=== PATIENT | female | born 1965 | race Caucasian/White ===

== ENCOUNTER 2020-10-04 11:55 | Outpatient (REF) | payer OTHER, SELFPAY | END 2020-10-04 11:56 | disposition home or self-care (01) | LOC: HO.LNP 11:55 | PROVIDERS: Visit Provider Nurse Practitioner Family | DX: Z20.822 Contact with and (suspected) exposure to COVID-19 (principal); J02.9 Acute pharyngitis, unspecified; K04.7 Periapical abscess without sinus | CPT/HCPCS: U0003; U0005 ==

== ENCOUNTER 2023-03-12 11:05 | Outpatient (AMB) | payer OTHER, SELFPAY ==
--- NOTE | 2023-03-12 13:13 | AM.OFFWIN_ITS ---
Intake Vital Signs 03/12/23 13:15 Height 5 ft 8 in Weight 160 lb BMI 24.3 BP 140/80 H Blood Pressure Location Rt brachial Position Sitting Pulse 74 Pulse Source Pulse Oximeter Temp 97.4 F Temp Source Temporal Artery Scan Pulse Oximetry (%) 100 Oxygen Delivery Method Room Air Intake Visit Reasons: EST/right side ear clogged Intake Note: pt is here for c.o cough due to congestion, ear clogged Patient Tobacco Use Status: Current everyday Tobacco user [facility] Allergy (Mild, Verified 03/12/23 13:23) welt Medication List - Last Reconciled 03/12/23 by Kev Valenzuela MD atorvastatin 80 mg PO DAILY blood sugar diagnostic As directed cetirizine 10 mg PO DAILY ferrous sulfate (Daniel-Time) 325 mg PO DAILY insulin glargine 42 units subcut DAILY liraglutide (Victoza 3-Keaton) 1.8 mg subcut DAILY metformin 1,000 mg PO BID pen needle, diabetic As directed tacrolimus 0.1% topical BID Do you need a note to return to daycare/school/sports/work: Yes HPI EST/right side ear clogged HPI Details Patient presents for a sick visit. Reporting symptoms of sinus congestion, sore throat and difficulty swallowing. Low-grade fever. No family member is sick. No recent travel. Patient reports symptoms of malaise and fatigue. PFSH Social History Patient Tobacco Use Status: Current everyday Tobacco user Physical Exam Vital Signs: Last Vital Signs Temp 97.4 F 03/12/23 13:15 Pulse 74 03/12/23 13:15 BP 140/80 H 03/12/23 13:15 Pulse Ox 100 03/12/23 13:15 Oxygen Delivery Method Room Air 03/12/23 13:15 BMI result Body Mass Index 24.3 Const General: cooperative and healthy appearing Nutritional Appearance: well nourished Orientation/consciousness: patient oriented x3 Limitations: no limitations HEENT Head: Yes normal to inspection Eyes General: appearance normal, both eyes and all related structures Neck Neck: Yes normal visual inspection Chest Chest palpation & inspection: normal palpation of entire chest wall Resp Effort & Inspection: normal respiratory effort Neuro General: patient oriented x3 Assessment & Plan Assessment & Plan (1) Upper respiratory tract infection: Code(s): J06.9 - Acute upper respiratory infection, unspecified Qualifiers: URI type: unspecified viral URI Qualified Code(s): J06.9 - Acute upper respiratory infection, unspecified Plan: Antibiotics ordered. Increase fluid intake. Tylenol for aches and pains. If symptoms worsen, follow-up here for a recheck. Coding Level of Care Code Est Pt Level 3 (10327) Diagnoses Viral upper respiratory tract infection J06.9 URI type: unspecified viral URI
[2023-03-12 13:15] VITALS: BP 140/80; PULSE 74; TEMP 36.3; O2SAT 100; BMI 24.3
== END 2023-03-12 13:52 | disposition home or self-care (01) ==
PROVIDERS: Visit Provider Internal Medicine
DX: J06.9 Acute upper respiratory infection, unspecified (principal)
CPT/HCPCS: 99213

== ENCOUNTER 2023-07-29 09:59 | Outpatient (AMB) | payer OTHER, SELFPAY ==
[2023-07-29 12:05] VITALS: BP 160/80; PULSE 92; TEMP 36.5; O2SAT 99; BMI 21.9
--- NOTE | 2023-07-29 12:05 | AM.OFFWIN_ITS ---
Intake Vital Signs 07/29/23 12:05 Height 5 ft 8 in Weight 144 lb BMI 21.9 BP 160/80 H Blood Pressure Location Rt brachial Position Sitting Pulse 92 Pulse Source Pulse Oximeter Temp 97.7 F Temp Source Temporal Artery Scan Pulse Oximetry (%) 99 Oxygen Delivery Method Room Air Intake Visit Reasons: EP sharp pain mid abdomen [phone] Intake Note: pt is here today for sharp pain mid abdomen started saturday Patient Tobacco Use Status: Current everyday Tobacco user Allergies dulaglutide [From [facility]] Allergy (Mild, Verified 07/29/23 12:06) welt Do you need a note to return to daycare/school/sports/work: Yes HPI EP sharp pain mid abdomen [phone] HPI Details 57-year-old female presents to the [facility] for a sick visit. Patient is complaining of abdominal discomfort for the past few days. Pain under both her ribcage is. No specific relieving or exacerbating factors. Patient is had few bowel movements. No history of nausea or vomiting. PFSH Social History Patient Tobacco Use Status: Current everyday Tobacco user Physical Exam Vital Signs: Last Vital Signs Temp 97.7 F 07/29/23 12:05 Pulse 92 07/29/23 12:05 BP 160/80 H 07/29/23 12:05 Pulse Ox 99 07/29/23 12:05 Oxygen Delivery Method Room Air 07/29/23 12:05 BMI result Body Mass Index 21.9 Const General: cooperative and healthy appearing Nutritional Appearance: well nourished Orientation/consciousness: patient oriented x3 Limitations: no limitations HEENT Head: Yes normal to inspection Eyes General: appearance normal, both eyes and all related structures Neck Neck: Yes normal visual inspection Chest Chest palpation & inspection: normal palpation of entire chest wall Resp Effort & Inspection: normal respiratory effort Neuro General: patient oriented x3 Assessment & Plan Assessment & Plan (1) Abdominal pain: Code(s): R10.9 - Unspecified abdominal pain Plan: X-ray images personally reviewed by me. Symptoms could be due to constipation pulled patient was advised to drink milk of magnesia and a suppository. If symptoms not improved to follow-up here. Orders: Orders XR abdomen min 2V Today R10.9 - Unspecified abdominal pain Coding Level of Care Code Est Pt Level 4 (88508) Diagnoses Abdominal pain R10.9
== END 2023-07-29 13:39 | disposition home or self-care (01) ==
PROVIDERS: Visit Provider Internal Medicine
DX: R10.9 Unspecified abdominal pain (principal)
CPT/HCPCS: 99214

== ENCOUNTER 2023-07-29 12:25 | Outpatient (REF) | payer OTHER, SELFPAY ==
--- NOTE | ~2023-07-29 | XR_ITS ---
EXAMINATION: XR ABDOMEN COMPLETE CLINICAL INDICATION: Abdominal pain COMPARISON: None available. TECHNIQUE: 3 views of the abdomen. FINDINGS: No dilated loops of bowel to suggest obstruction. Mild fecal loading of the ascending colon. Degenerative changes of the thoracolumbar lumbosacral spine with slight levocurvature of the upper lumbar spine. Degenerative changes of the bilateral femoral acetabular joint. Slight elevation the right hemidiaphragm. Soft tissues are unremarkable. XR/XR abdomen min 2V IMPRESSION: 1. No dilated loops of bowel to suggest obstruction. 2. Mild fecal loading of the ascending colon.
== END 2023-07-29 12:26 | disposition home or self-care (01) ==
LOC: HO.HMGCX 12:25
PROVIDERS: Visit Provider Internal Medicine
DX: R10.9 Unspecified abdominal pain (principal)
CPT/HCPCS: 74019

== ENCOUNTER 2023-07-30 13:56 | Outpatient (REF) | payer OTHER, SELFPAY ==
[2023-07-30 16:17] LABS: Hematocrit 39.4 % (37.0-47.0); Hemoglobin 13.2 g/dl (12.0-16.0); Mean Corpuscular HGB Conc 33.5 g/dl (31.0-35.0); Mean Corpuscular Hemoglobin 29.4 pg (27.0-33.0); Mean Corpuscular Volume 87.8 fL (80.0-98.0); Mean Platelet Volume 10.2 fL (9.4-12.3); Platelet Count 413 X10*3/uL (160-400); Red Blood Count 4.49 X10*6/uL (4.20-5.50); Red Cell Distribution Width 11.9 % (11.0-16.0); White Blood Count 8.3 X10*3/uL (4.8-10.8)
[2023-07-30 16:24] LABS: Estimated Average Glucose 192 mg/dL; Hemoglobin A1c % 8.3 % (<6.0)
[2023-07-30 16:45] LABS: Appearance Urine Turbid; Color Urine Yellow; Glucose Urine UA 500 mg/dL (Negative); Leukocyte Esterase Urine Moderate (2+) (Negative); Nitrite Urine Positive (Negative); Specific Gravity - Urine 1.025 (1.005-1.025); UMIC TRIGGER UA YES; Urine Blood Negative (Negative); Urine Ketones Negative (Negative); Urine Protein Trace mg/dL (Neg-Trace)
[2023-07-30 16:46] LABS: Alanine Aminotransferase 20 U/L (0-31); Albumin Level 3.6 g/dL (3.5-5.0); Alkaline Phosphatase 179 U/L (39-117); Anion Gap 14 (12-20); Aspartate Amino Transferase 11 U/L (5-31); Bilirubin Direct < 0.2 mg/dL (0.0-0.5); Bilirubin Total 0.2 mg/dL (0.0-1.0); Blood Urea Nitrogen 9 mg/dL (9-16); Calcium 10.1 mg/dL (8.4-10.2); Carbon Dioxide 27 mmol/L (22-29); Chloride 101 mmol/L (96-108); Estimated Glomerular Filt Rate > 60; Glucose Random 275 mg/dL (60-115); Potassium 3.6 mmol/L (3.3-5.1); Sodium 138 mmol/L (135-145); Total Protein 8.4 g/dL (6.5-8.0)
[2023-07-30 16:48] LABS: Bacteria Urine 4+ (None Seen); Hyaline Casts Urine 0-2 /LPF (0-2); RBC Urine 0-2 /HPF (0-2); WBC Urine >50 /HPF (0-5)
[2023-07-30 16:49] LABS: Thyroid Stimulating Hormone 0.84 uIU/mL (0.32-4.0)
[2023-07-30 17:24] LABS: Erythrocyte Sedimentation Rate 87 MM/HR (0-20)
== END 2023-07-30 13:57 | disposition home or self-care (01) ==
LOC: HO.HMGCLDS 13:56
PROVIDERS: PCP Internal Medicine; Visit Provider Internal Medicine
DX: R10.9 Unspecified abdominal pain (principal)
CPT/HCPCS: 36415; 80048; 80076; 81001; 83036; 84443; 85027; 85652

== ENCOUNTER 2024-06-08 08:08 | Outpatient (AMB) | payer OTHER, SELFPAY ==
[2024-06-08 08:13] VITALS: BP 126/80; PULSE 78; TEMP 36.7; O2SAT 100; BMI 22.0
--- NOTE | 2024-06-08 08:13 | MHC.OFFWIV ---
Intake Vital Signs 06/08/24 08:13 Height 5 ft 8 in Weight 144 lb 8 oz BMI 22.0 BP 126/80 Blood Pressure Location Rt brachial Position Sitting Pulse 78 Pulse Source Pulse Oximeter Temp 98.0 F Temp Source Oral Pulse Oximetry (%) 100 Intake Visit Reasons: EP Stomach pain Intake Note: Patient here for stomach pain, swelling that has been present for about 1 week. Patient Tobacco Use Status: Current everyday Tobacco user [facility] Allergy (Mild, Verified 06/08/24 08:16) welt HPI EP Stomach pain HPI Details This note is constructed using voice recognition software. While every effort has been made to ensure accuracy, mobile phlebotomist errors may have been included. The patient is a 58 year old female who presents to the clinic today with left lower rib pain. She reports that her has a history of MS, and she typically is responsible for physically helping him, initially leading her to feel that she may have had a muscle strain. She has been taking 500 mg of Tylenol up to 4 times per day which somewhat helps the pain but does not completely alleviate. Pain is worse when she is sitting, improves when she standing. She denies epigastric pain, acid sensation, change in taste, shortness of breath or cough, rash. PFSH Social History Patient Tobacco Use Status: Current everyday Tobacco user Review of Systems Const All systems reviewed & are unremarkable except as noted in HPI and below Physical Exam Vital Signs: Last Vital Signs Temp 98.0 F 06/08/24 08:13 Pulse 78 06/08/24 08:13 BP 126/80 06/08/24 08:13 Pulse Ox 100 06/08/24 08:13 BMI result Body Mass Index 22.0 Const General: cooperative, healthy appearing, comfortable, no acute distress and well developed Orientation/consciousness: patient oriented x3 Limitations: no limitations HEENT Head: Yes normal to inspection Ears: hearing grossly normal bilaterally General nose exam: Normal external nose present Face and sinus: Yes normal facial exam Eyes General: appearance normal, both eyes and all related structures Neck Neck: Yes normal visual inspection and Yes full ROM Chest Other: Left lower chest wall TTP. No echymosis, edema, erythema, rash. Resp Effort & Inspection: normal respiratory effort and able to speak in complete sentences Auscultation: clear to auscultation bilaterally Cardio Rate: regular rate Rhythm: regular rhythm Heart sounds: normal S1 and S2 GI Inspection: Yes normal to inspection Palpation (GI): Soft to palpation and nontender General: Yes no CVA tenderness Back/Spine/Pelvis Other: FROM Back: no CVA tenderness Skin General skin exam: no rashes or lesions noted Neuro General: patient oriented x3 Assessment & Plan Assessment & Plan (1) Muscle strain of chest wall: Code(s): S29.011A - Strain of muscle and tendon of front wall of thorax, initial encounter Qualifiers: Encounter type: initial encounter Qualified Code(s): S29.011A - Strain of muscle and tendon of front wall of thorax, initial encounter Plan: Likely muscular in origin. Discussed trial ice/heat, rest, topical muscle rubs, oral NSAIDs. No indication for imaging at this time. Advised follow up with worsening or failure to resolve. Plan See above for full details and plan. Coding Level of Care Code Est Pt Level 3 (99538) Diagnoses Muscle strain of chest wall, initial encounter S29.011A Encounter type: initial encounter
== END 2024-06-08 08:50 | disposition home or self-care (01) ==
PROVIDERS: PCP Internal Medicine; Visit Provider Registered Nurse
DX: S29.011A Strain of muscle and tendon of front wall of thorax, initial encounter (principal)

== ENCOUNTER → 2024-06-08 08:08 | Outpatient (BNVA) | payer OTHER, SELFPAY | PROVIDERS: PCP Internal Medicine; Visit Provider Registered Nurse | DX: S29.011A Strain of muscle and tendon of front wall of thorax, initial encounter (principal) | CPT/HCPCS: 99212 ==